=== PATIENT | male | born 1965 | race Caucasian/White ===

== ENCOUNTER 2017-08-21 12:45 | Emergency (ER) | payer OTHER ==
--- NOTE | 2017-08-21 13:47 | UC ---
Respiratory Complaint HPI - HPI Summary HPI Summary: 52 year old male presents with complains of wheezing expiration. - History of Current Complaint Stated Complaint: DIFFICULTY BREATHING Time Seen by Provider: 08/21/17 13:47 Hx Obtained From: Patient Onset/Duration: Sudden Onset Severity Initially: Moderate Severity Currently: Moderate Pain Scale Used: 0-10 Numeric - 0 Character: Cough: Nonproductive Aggravating Factors: Exertion, Recumbent Position Alleviating Factors: Upright Position, Spontaneous Resolution - Allergies/Home Medications Allergies/Adverse Reactions: Allergies Allergy/AdvReac Type Severity Reaction Status Date / Time No Known Allergies Allergy Verified 08/21/17 13:49 PMH/Surg Hx/FS Hx/Imm Hx Previously Healthy: Yes - Surgical History Surgical History: Yes Surgery Procedure, Year, and Place: knee arthroscopy - Family History Known Family History: Positive: Hypertension - Social History Alcohol Use: Weekly Alcohol Amount: 2 times a week Substance Use Type: None Smoking Status (MU): Never Smoked Tobacco Type: Smokeless Tobacco Review of Systems Constitutional: Negative Skin: Negative Eyes: Negative ENT: Nasal Discharge, Sinus Congestion, Sinus Pain/Tenderness Respiratory: Shortness Of Breath, Cough Cardiovascular: Negative Gastrointestinal: Negative Genitourinary: Negative Motor: Negative Neurovascular: Negative Musculoskeletal: Negative Neurological: Negative Psychological: Negative All Other Systems Reviewed And Are Negative: Yes Physical Exam Triage Information Reviewed: Yes Vital Signs Reviewed: Yes Eye Exam: Normal ENT Exam: Normal Dental Exam: Normal Neck exam: Normal Neck: Positive: 1 Respiratory: Positive: Wheezing Cardiovascular Exam: Normal Abdominal Exam: Normal Musculoskeletal Exam: Normal Neurological Exam: Normal Psychological Exam: Normal Skin Exam: Normal Respiratory Course/Dx - Differential Dx/Diagnosis Provider Diagnoses: cough. wheezing Discharge - Discharge Plan Condition: Stable Disposition: HOME Prescriptions: Albuterol HFA INHALER* [Ventolin HFA Inhaler*] 1 puff INH Q6H PRN #1 mdi PRN Reason: Wheezing Amoxicillin/Clavulanate TAB* [Augmentin TAB 875*] 875 mg PO BID #20 tab Guaifenesin-Codeine [Cheratussin AC] 1 teasp PO Q8H PRN #120 ml MDD 15 ml PRN Reason: Cough Methylprednisolone [Medrol Dosepak 4 MG*] 4 mg PO .SEE THANH INSTRUCTION #21 tab Patient Education Materials: Allergic Rhinitis (ED) Referrals: Lilly Almaguer MD [Primary Care Provider] -
[2017-08-21 13:49] VITALS: BP 156/82
== END 2017-08-21 14:15 | disposition home or self-care (01) ==
LOC: UCCORT 12:45
DX: R05 Cough (principal); R06.2 Wheezing
CPT/HCPCS: 99212; G0463